=== PATIENT | female | born 1975 | race African-American/Black ===

== ENCOUNTER 2018-07-18 06:01 | Day surgery (SDC) | payer OTHER ==
[2018-07-18] MEDS ORDERED: ROCURONIUM 50 MG INJ ×2 (07:00→08:11)
[2018-07-18] MEDS ORDERED: LIDOCAINE 2% (SDV) 5 ML INJ (07:00)
[2018-07-18] MEDS: SOD CHLORIDE 0.9% 1,000 ML IV (07:12)
[2018-07-18] MEDS: VANCOMYCIN 1 GM 250 ML IVPB (07:12)
[2018-07-18 07:27] LABS: ADD MAN DIFF? NO
[2018-07-18 07:30] LABS: WHITE BLOOD COUNT 9.2 10^3/ul (4.8-10.8)
[2018-07-18 07:30] LABS: BASOPHILS % 0.3 % (0.0-2.0); EOSINOPHILS # 0.4 10^3/ul (0.0-0.5); EOSINOPHILS % 4.5 % (0.0-7.0); HEMATOCRIT 37.6 % (37.0-47.0); HEMOGLOBIN 11.5 g/dl (12.0-16.0); LYMPHOCYTES # 3.6 10^3/ul (0.8-2.9); LYMPHOCYTES % 39.4 % (15.0-51.0); MEAN CORPUSCULAR HEMOGLOBIN 22.1 pg (29.0-33.0); MEAN CORPUSCULAR HGB CONC 30.6 g/dl (32.0-37.0); MEAN CORPUSCULAR VOLUME 72.2 fl (82.0-101.0); MEAN PLATELET VOLUME 9.2 fl (7.4-10.4); MONOCYTE # 0.5 10^3/ul (0.3-0.9); MONOCYTES % 5.2 % (0.0-11.0); NEUTROPHIL # 4.7 10^3/ul (1.6-7.5); NEUTROPHILS % 50.4 % (39.0-77.0); PLATELET COUNT 516 10^3/UL (140-415); RED BLOOD COUNT 5.21 10^6/ul (4.20-5.40); RED CELL DISTRIBUTION WIDTH 17.4 % (11.5-14.5)
[2018-07-18] MEDS: BUPIVACAINE 0.25% (MPF) 30 ML INJ (07:37)
[2018-07-18 07:51] LABS: INR 0.95; PROTIME 12.8 Sec (11.9-14.9)
[2018-07-18 07:52] LABS: ALANINE AMINOTRANSFERASE 19 IU/L (13-69); ALBUMIN 4.2 g/dl (3.3-4.9); ALBUMIN/GLOBULIN RATIO 1.44; ALKALINE PHOSPHATASE 116 IU/L (42-121); ANION GAP 8 (5-13); ASPARTATE AMINO TRANSFERASE 17 IU/L (15-46); BILIRUBIN,INDIRECT 0.4 mg/dl (0-1.1); BILIRUBIN,TOTAL 0.4 mg/dl (0.2-1.3); BLOOD UREA NITROGEN 20 mg/dl (7-20); CALCIUM 9.4 mg/dl (8.4-10.2); CARBON DIOXIDE 29 mmol/L (21-31); CHLORIDE 104 mmol/L (97-110); CREATININE 0.87 mg/dl (0.44-1.00); Estimated GFR > 60 mL/min (>60); GLUCOSE 103 mg/dl (70-220); PARTIAL THROMBOPLASTIN TIME 29.7 Sec (23.0-35.0); SODIUM 141 mmol/L (135-144); TOTAL PROTEIN 7.1 g/dl (6.1-8.1)
[2018-07-18] MEDS ORDERED: PROPOFOL 20 ML (08:10)
[2018-07-18] MEDS ORDERED: DEXAMETHASONE 4 MG/ML 1 ML INJ (08:38)
[2018-07-18] MEDS ORDERED: ONDANSETRON 4 MG INJ (08:38)
[2018-07-18] MEDS ORDERED: SUGAMMADEX SODIUM 200 MG/2 ML VIAL IV (08:50)
[2018-07-18] MEDS ORDERED: KETOROLAC 30 MG INJ (08:51)
[2018-07-18] MEDS ORDERED: FENTAnyl 50 MCG/ML VIAL (09:24)
[2018-07-18] MEDS ORDERED: LABETALOL HCL 20MG INJ IV (09:30)
[2018-07-18] MEDS ORDERED: traMADol 50 MG TAB PO (09:30)
[2018-07-18] MEDS ORDERED: MIDAZOLAM 1 MG/ML 2 ML INJ IV (09:30)
[2018-07-18] MEDS ORDERED: MEPERIDINE 25 MG INJ IV (09:30)
[2018-07-18] MEDS ORDERED: ONDANSETRON 4 MG INJ IV (09:30)
[2018-07-18] MEDS ORDERED: DIPHENHYDRAMINE 50 MG INJ IV (09:30)
[2018-07-18] MEDS ORDERED: ALBUTEROL 0.083% (NEB) 2.5 MG/3 ML AMP HHN (09:30)
[2018-07-18] MEDS ORDERED: FENTAnyl 50 MCG/ML VIAL IV ×2 (09:30)
[2018-07-18] MEDS ORDERED: EPHEDrine SULFATE 50 MG/5 ML SYG IV (09:30)
[2018-07-18] MEDS ORDERED: hydrALAzine 20 MG INJ IV (09:30)
[2018-07-18] MEDS: FENTAnyl 50 MCG/ML VIAL IV (09:42)
== END 2018-07-18 11:20 | disposition home or self-care (01) ==
LOC: SDS 06:01
DX: K80.10 Calculus of gallbladder with chronic cholecystitis without obstruction (principal); I10 Essential (primary) hypertension; J45.909 Unspecified asthma, uncomplicated; R94.31 Abnormal electrocardiogram [ECG] [EKG]
CPT/HCPCS: 47562; 71045; 80053; 84703; 85025; 85610; 85730; 88304; 93005